=== PATIENT | male | born 1960 | race Caucasian/White ===

== ENCOUNTER 2021-01-05 03:49 | Emergency (ER) | payer MEDICARE, MEDICAID, SELFPAY ==
[2021-01-05] VITALS (8 sets, daily range): BP systolic 134–141; BP diastolic 65–86; PULSE 71–107; RESP 18; TEMP 36.8–37.1; O2SAT 92–97; BMI 48.5
--- NOTE | 2021-01-05 03:50 | HMH.EDGENADL ---
ED Disposition Clinical Impression: Mood disorder, Substance abuse Alcohol intoxication Qualifiers: Complication of substance-induced condition: uncomplicated Qualified Code(s): F10.920 - Alcohol use, unspecified with intoxication, uncomplicated Disposition: Home, Self-Care Condition on Discharge: Fair Instructions: DI for Depression -- Adult, DI for Alcohol Use Disorder, DI for Substance Use Disorder Additional Instructions: Referrals for alcohol rehabilitation given. Follow-up with primary care provider. Referrals: PCP,No [Primary Care Provider] - - Critical Care Critical Care Time: No Attestation: On , the high probability of a clinically significant, sudden or life threatening deterioration of the following system(s) required my full and direct attention, intervention and personal management. The time I documented below is in addition to time spent performing reported procedures but includes the following listed in this critical care notation. Medical Decision Making - Venkat Inquiry Pt receiving controlled substance: No Vital Signs: 01/05/21 03:35 01/05/21 05:44 01/05/21 05:45 Temperature 98.7 F Temperature Source Oral Pulse Rate 102 H 107 H Pulse Rate [Left Radial] 105 H Respiratory Rate 18 Blood Pressure Blood Pressure [Right Arm] 141/82 H Blood Pressure Mean Blood Pressure Mean [Right Arm] 101 Blood Pressure Source [Right Arm] Automatic Cuff Blood Pressure Position [Right Arm] Supine 02 Sat by Pulse Oximetry 96 92 L 93 L Oxygen Delivery Method Room Air 01/05/21 06:00 01/05/21 06:15 01/05/21 06:30 Temperature Temperature Source Pulse Rate 99 H 96 H 93 H Pulse Rate [Left Radial] Respiratory Rate Blood Pressure 141/86 H 136/80 Blood Pressure [Right Arm] Blood Pressure Mean 101 98 Blood Pressure Mean [Right Arm] Blood Pressure Source [Right Arm] Blood Pressure Position [Right Arm] 02 Sat by Pulse Oximetry 95 94 L 96 Oxygen Delivery Method 01/05/21 06:45 Temperature Temperature Source Pulse Rate 96 H Pulse Rate [Left Radial] Respiratory Rate Blood Pressure Blood Pressure [Right Arm] Blood Pressure Mean Blood Pressure Mean [Right Arm] Blood Pressure Source [Right Arm] Blood Pressure Position [Right Arm] 02 Sat by Pulse Oximetry 94 L Oxygen Delivery Method - Lab Data Lab Results 01/05/21 03:45: PT 11.7, INR 0.99, APTT 21.2 L 01/05/21 03:45: Sodium 141, Potassium 5.0, Chloride 107, Carbon Dioxide 22, Anion Gap 17.0 H, BUN 8 L, Creatinine 0.70, Estimated Creat Clear 36, Estimated GFR 115, Est GFR ( Amer) 140, Glucose 95, Calcium 9.1, Magnesium 1.9, Total Bilirubin 0.8, AST 90 H, ALT 49, Alkaline Phosphatase 359 H, Total Protein 8.0, Albumin 4.2, Globulin 3.8 H, Albumin/Globulin Ratio 1.1 01/05/21 03:45: Plasma/Serum Alcohol 248 H 01/05/21 04:13: WBC 6.6, RBC 3.96 L, Hgb 12.4 L, Hct 41.0 L, MCV 103.4 H, MCH 31.4 H, MCHC 30.3 L, RDW 17.9 H, Plt Count 686 H, MPV 8.6, Neut % (Auto) 40.1, Lymph % (Auto) 48.9, Kay % (Auto) 7.6, Eos % (Auto) 1.8, Baso % (Auto) 1.6, Neut # (Auto) 2.7, Lymph # (Auto) 3.2, Kay # (Auto) 0.5, Eos # (Auto) 0.1, Baso # (Auto) 0.1 01/05/21 05:07: Urine Opiates Screen Negative, Urine Methadone Screen Negative, Ur Barbituates Screen Negative, Ur Phencyclidine Scrn Negative, Ur Amphetamines Screen Negative, U Benzodiazepines Scrn Positive H, Urine Cocaine Screen Negative, U Marijuana (THC) Screen Negative Result diagrams: 01/05/21 04:13 01/05/21 03:45 Orders (Tests/Meds): ED MEDICATIONS Generic Name Dose Route Start Last Admin Trade Name Freq PRN Reason Stop Dose Admin Multivitamins 10 ml/ Thiamine 1,015 mls @ 150 mls/hr 01/05/21 04:00 01/05/21 04:04 HCl 100 mg/ Magnesium Sulfate IV 01/05/21 10:45 150 mls/hr 2 gm/ Lactated Ringer's .[id number] CAITLIN Administration Discontinued Medications Generic Name Dose Route Start Last Admin Trade Name Freq PRN Reason Stop Dose Admin
[2021-01-05 04:07] LABS: Chloride 107 mmol/L (98-107)
[2021-01-05 04:08] LABS: Sodium 141 mmol/L (136-145)
[2021-01-05 04:10] LABS: Alanine Aminotransferase 49 U/L (12-78); Aspartate Amino Transferase 90 U/L (17-59); Blood Urea Nitrogen 8 mg/dl (9-20); Creatinine Clearance Estimated 36 mL/min (50-200); Estimated Glomerular Filt Rate 115 ml/min (>60); GFR (African American) 140 ML/MIN (>60)
[2021-01-05 04:11] LABS: Albumin Level 4.2 g/dl (3.5-5.0); Albumin/Globulin Ratio 1.1 (1.1-1.8); Alkaline Phosphatase 359 U/L (38-126); Bilirubin,Total 0.8 mg/dl (0.2-1.3); Calcium 9.1 mg/dl (8.4-10.2); Carbon Dioxide 22 mmol/L (22.0-30.0); Ethyl Alcohol 248 mg/dl (0-10); Globulin 3.8 g/dL (1.3-3.2); Glucose 95 mg/dl (74-100); Magnesium 1.9 mg/dl (1.6-2.3)
[2021-01-05 04:19] LABS: Basophils # 0.1 K/mm3 (0-0.2); Basophils % 1.6 % (0.1-2.0); Eosinophils # 0.1 K/mm3 (0.0-0.4); Eosinophils % 1.8 % (0.1-12.0); Hemoglobin 12.4 g/dL (14.1-18.0); Lymphocytes # 3.2 K/mm3 (0.7-4.5); Lymphocytes % 48.9 % (10-50); Mean Corpuscular HGB Conc 30.3 g/dL (31.8-35.4); Mean Corpuscular Hemoglobin 31.4 pg (27.0-31.2); Mean Corpuscular Volume 103.4 fl (80-94); Mean Platelet Volume 8.6 fl (7.4-10.4); Monocytes # 0.5 K/mm3 (0.1-1.0); Monocytes % 7.6 % (1.7-9.3); Neutrophils # 2.7 K/mm3 (1.8-7.8); Neutrophils % 40.1 % (37.0-80.0); Platelet Count 686 K/mm3 (142-424); Red Blood Count 3.96 M/mm3 (4.60-6.20); Red Cell Distribution Width 17.9 % (11.5-17.5); White Blood Count 6.6 K/mm3 (4.8-10.8)
[2021-01-05 04:25] LABS: INR 0.99 (0.9-1.1); Prothrombin Time 11.7 seconds (10.1-12.5)
[2021-01-05 04:42] LABS: Activated Partial Thrombo Time 21.2 seconds (22.8-30.6)
[2021-01-05 05:23] LABS: Amphetamine/Metha Screen,Urine Negative ng/ml (<1000)
[2021-01-05 05:24] LABS: Barbiturates Screen,Urine Negative ng/ml (<200); Benzodiazepines Screen,Urine Positive ng/ml (<200)
[2021-01-05 05:25] LABS: Cannabinoid Screen,Urine Negative ng/ml (<50)
[2021-01-05 05:26] LABS: Cocaine Screen,Urine Negative ng/ml (<300); Methadone Screen,Urine Negative ng/ml (<300)
[2021-01-05 05:27] LABS: Opiate Screen,Urine Negative ng/ml (<300)
[2021-01-05 05:28] LABS: Phencyclidine Screen,Urine Negative ng/ml (<25)
--- NOTE | 2021-01-05 08:32 | PC.NURSE ---
Damaris Estevez, Case Management has secured pt a ride with [employer]. Bus will be here in approx 15 mins.
--- NOTE | 2021-01-05 10:21 | SW/DCPLANNER ---
I have arranged [facility] [employer] for this patient. I also provided patient with a list of Alcohol inpatient/outpatient resources. Patient had no further questions at this time.
== END 2021-01-05 08:46 | disposition home or self-care (01) ==
PROVIDERS: Emergency Provider Emergency Medicine
DX: F10.920 Alcohol use, unspecified with intoxication, uncomplicated (principal); F39 Unspecified mood [affective] disorder; Z95.0 Presence of cardiac pacemaker; I73.9 Peripheral vascular disease, unspecified; Z89.512 Acquired absence of left leg below knee; Z89.511 Acquired absence of right leg below knee; F17.210 Nicotine dependence, cigarettes, uncomplicated; Z51.81 Encounter for therapeutic drug level monitoring
CPT/HCPCS: 80053; 80305; 83735; 85025; 85610; 85730; 99281

== ENCOUNTER 2021-05-01 18:33 | Emergency (ER) | payer MEDICARE, MEDICAID, SELFPAY ==
[2021-05-01 18:34] VITALS: BP 150/81; PULSE 96; RESP 16; TEMP 37.7; O2SAT 96; BMI 38.0
--- NOTE | 2021-05-01 18:49 | HMH.EDGENADL ---
ED Disposition Clinical Impression: Pain, lower extremity Qualifiers: Laterality: right Qualified Code(s): M79.604 - Pain in right leg Chronic pain Qualifiers: Chronic pain type: other chronic postprocedural pain Qualified Code(s): G89.28 - Other chronic postprocedural pain Disposition: Home, Self-Care Condition on Discharge: Good Referrals: Provider,Referral, [Referring] - - Critical Care Critical Care Time: No Attestation: On 05/01/21, the high probability of a clinically significant, sudden or life threatening deterioration of the following system(s) required my full and direct attention, intervention and personal management. The time I documented below is in addition to time spent performing reported procedures but includes the following listed in this critical care notation. Medical Decision Making - Medical Records Medical records reviewed: Yes: I reviewed the patient's medical records. - Venkat Inquiry Pt receiving controlled substance: Yes (Patient is on methadone for chronic pain.) Venkat was queried for this patient: No (Patient will not be receiving controlled substances during this visit) Risks and benefits of using a controlled substance: were discussed with pt by me Vital Signs: 05/01/21 18:34 Temperature 99.8 F H Temperature Source Oral Pulse Rate [Radial] 96 H Respiratory Rate 16 Blood Pressure [Right Arm] 150/81 H Blood Pressure Mean [Right Arm] 104 Blood Pressure Position [Right Arm] Sitting 02 Sat by Pulse Oximetry 96 Oxygen Delivery Method Room Air Orders (Tests/Meds): ED MEDICATIONS Discontinued Medications Generic Name Dose Route Start Last Admin Trade Name Freq PRN Reason Stop Dose Admin Ketorolac Tromethamine 60 mg 05/01/21 18:49 05/01/21 18:52 Ketorolac 60mg/2ml Vial IM 05/01/21 18:50 60 mg ONCE ONE Administration Medical Decision Narrative: Patient presents to the emergency department complaining of right-sided thigh pain. This is a chronic issue. On physical examination there is no evidence for life-threatening or dangerous causes for the patient's pain. The patient has chronic phantom pain. He is on methadone for this. There is no sign of infection or ischemia on physical examination today. Given the fact the patient is already on methadone for this chronic pain, he will not be given any narcotic pain medication during this visit. He has been given Toradol and will be discharged in stable condition. General Adult HPI - General Chief complaint: PAIN Stated complaint: thigh pain Time Seen by Provider: 05/01/21 18:49 Mode of Arrival: EMS Source of Information: Patient Limitations: No Limitations Description of Symptoms (Recalled from ER Triage Doc. by RN): TO ED PER SQUAD WITH C/O RT THIGH PAIN AND SWELLING PT WITH HX OF PAULIE AKA DUE TO PVD. PT STATES HE ALWAYS HAS PAIN BUT THIS IS DIFFERENT - History of Present Illness HPI narrative: The patient presents to the emergency department via ambulance complaining of worsening phantom pain. He has bilateral [id number] amputations. He denies fevers. Denies bleeding. He denies recent injury. Radiation: non-radiation - Related Data Home Medications Medication Instructions Recorded Confirmed Aspirin [Aspirin 81mg EC Tab] 1 tab PO DIRECTED 11/20/18 01/17/19 Atorvastatin Calcium [Atorvastatin 10 mg PO HS 11/20/18 01/17/19 10mg Tab] Metoprolol Tartrate [Lopressor 25 mg PO BID 11/20/18 01/17/19 25mg tablet] Oxycodone HCl [OxyIR 5mg tablet] 1 tab * DIRECTED 11/20/18 01/17/19 Amlodipine Besylate [Amlodipine 5 mg PO DAILY 01/17/19 01/17/19 5mg tab] Calcium Carbonate/Vitamin D3 1 each PO DAILY 01/17/19 01/17/19 [Calcium 600-Vit D3 400 Tablet] Ergocalciferol (Vitamin D2) 50,000 unit PO WEEKLY 01/17/19 01/17/19 [Vitamin D2] Ezetimibe 10 mg PO DAILY 01/17/19 01/17/19 Levocetirizine Dihydrochloride 5 mg PO DAILY 01/17/19 01/17/19 Montelukast Sodium [Montelukast 10
[2021-05-01 19:42] VITALS: BP 111/68; PULSE 91; RESP 16; TEMP 37.1; O2SAT 96
== END 2021-05-01 19:44 | disposition home or self-care (01) ==
PROVIDERS: Emergency Provider Emergency Medicine; PCP Family Medicine
DX: M79.604 Pain in right leg (principal); G89.28 Other chronic postprocedural pain; Z89.612 Acquired absence of left leg above knee; Z89.611 Acquired absence of right leg above knee; I73.9 Peripheral vascular disease, unspecified; F17.210 Nicotine dependence, cigarettes, uncomplicated
CPT/HCPCS: 99281

== ENCOUNTER 2021-10-26 16:52 | Emergency (ER) | payer MEDICARE, MEDICAID, SELFPAY ==
[2021-10-26 16:56] VITALS: BP 169/90; PULSE 84; RESP 18; TEMP 37.1; O2SAT 98; BMI 42.7
[2021-10-26 17:00] VITALS: BP 169/90; PULSE 83; O2SAT 98
--- NOTE | 2021-10-26 17:26 | HMH.EDGENADL ---
ED Disposition Clinical Impression: Jaisonkiness Disposition: Home, Self-Care Condition on Discharge: Good Additional Instructions: Ativan as needed. Follow-up with your primary care doctor within the next 2 days. Additional instructions for CONTROLLED SUBSTANCES: You have been prescribed a medication that is a controlled substance. Controlled substances include pain medications known as opiates and sedative nerve medications known as benzodiazepines. Tramadol, fioricet, and gabapentin are also controlled substances. Some common opiates include: Codeine (such as Tylenol #3) Hydrocodone (Vicodin, Lortab, Lorcet, Mccrory) Oxycodone (Percocet, Percodan, Oxycodone, Oxy IR) Some common benzodiazepines include: Diazepam (Valium) Lorazepam (Ativan) Alprazolam (Xanax) Clonazepam (Klonopin) Oxazepam (Serax) All of these controlled substances are highly addictive and frequently abused. Misuse can and frequently does lead to addiction as well as overdose and . Medication should be stored in a locked cabinet or other secure storage unit. Do not store the medication in a motor vehicle. Short term supplies, 3 days or less, are prescribed because of the highly addictive nature of the medication. Any of the controlled substance medication NOT taken should be disposed of properly and NOT SAVED. The recommended method of disposing of unused medications is: Place the medicines in a sealable plastic bag. If the medicine is a solid, crush it or add water to dissolve it. Add something undesirable (cat litter, coffee grounds, etc.) Dispose of sealed bag in household trash Do not flush or pour unused medicines down a sink or drain. Controlled substances should not be shared, given away or sold. Because of the addictive nature and frequent abuse, these medications are sometimes stolen. These medications should be kept in a safe place where they cannot be stolen. Do not keep them in your car or purse. Lost or stolen prescriptions for controlled substances WILL NOT BE REFILLED in this emergency department, regardless of whether a police report was filed. Prescriptions: LORazepam [Ativan 1mg tablet] 1 mg PO BIDP PRN #4 tab PRN Reason: Anxiety Transmission Status: Received by [facility] Referrals: Provider,Referral, [Referring] - - Critical Care Critical Care Time: No Attestation: On 10/26/21, the high probability of a clinically significant, sudden or life threatening deterioration of the following system(s) required my full and direct attention, intervention and personal management. The time I documented below is in addition to time spent performing reported procedures but includes the following listed in this critical care notation. Medical Decision Making - Venkat Inquiry Pt receiving controlled substance: Yes Venkat was queried for this patient: Yes Risks and benefits of using a controlled substance: were discussed with pt by me Vital Signs: 10/26/21 16:56 10/26/21 17:00 10/26/21 17:30 Temperature 98.7 F Temperature Source Oral Pulse Rate 83 79 Pulse Rate [Right Radial] 84 Respiratory Rate 18 Blood Pressure 169/90 H 188/106 H Blood Pressure [Right Arm] 169/90 H Blood Pressure Mean 117 133 Blood Pressure Mean [Right Arm] 116 Blood Pressure Source [Right Arm] Automatic Cuff Blood Pressure Position [Right Arm] Sitting 02 Sat by Pulse Oximetry 98 98 96 Oxygen Delivery Method Room Air 10/26/21 18:25 10/26/21 19:31 Temperature Temperature Source Pulse Rate 82 82 Pulse Rate [Right Radial] Respiratory Rate 16 Blood Pressure 199/123 H 151/93 H Blood Pressure [Right Arm] Blood Pressure Mean Blood Pressure Mean [Right Arm] Blood Pressure Source [Right Arm] Blood Pressure Position [Right Arm] 02 Sat by Pulse Oximetry 97 98 Oxygen Delivery Method Room Air - Lab Data Lab Results 10/26/21 17:46: WBC 14.6 H, RBC 4.45 L, Hgb 13.9 L, Hc
[2021-10-26 17:30] VITALS: BP 188/106; PULSE 79; O2SAT 96
[2021-10-26 18:01] LABS: Basophils # 0.2 K/mm3 (0-0.2); Basophils % 1.1 % (0.1-2.0); Eosinophils # 0.6 K/mm3 (0.0-0.4); Eosinophils % 3.9 % (0.1-12.0); Hematocrit 45.3 % (42.0-52.0); Hemoglobin 13.9 g/dL (14.1-18.0); Lymphocytes # 3.5 K/mm3 (0.7-4.5); Lymphocytes % 23.8 % (10-50); Mean Corpuscular HGB Conc 30.6 g/dL (31.8-35.4); Mean Corpuscular Hemoglobin 31.2 pg (27.0-31.2); Mean Corpuscular Volume 101.9 fl (80-94); Mean Platelet Volume 8.6 fl (7.4-10.4); Monocytes % 6.8 % (1.7-9.3); Neutrophils # 9.4 K/mm3 (1.8-7.8); Neutrophils % 64.5 % (37.0-80.0); Platelet Count 775 K/mm3 (142-424); Red Blood Count 4.45 M/mm3 (4.60-6.20); Red Cell Distribution Width 16.9 % (11.5-17.5); White Blood Count 14.6 K/mm3 (4.8-10.8)
[2021-10-26 18:03] LABS: Chloride 106 mmol/L (98-107); Potassium 3.7 mmoL/L (3.5-5.1); Sodium 138 mmol/L (136-145)
[2021-10-26 18:05] LABS: Blood Urea Nitrogen 8 mg/dl (9-20); Creatinine Clearance Estimated 36 mL/min (50-200); Estimated Glomerular Filt Rate 115 ml/min (>60); GFR (African American) 140 ML/MIN (>60)
[2021-10-26 18:06] LABS: Alanine Aminotransferase 16 U/L (12-78); Albumin Level 4.6 g/dl (3.5-5.0); Albumin/Globulin Ratio 1.4 (1.1-1.8); Alkaline Phosphatase 104 U/L (38-126); Anion Gap 11.7 mEq/L (5-15); Aspartate Amino Transferase 28 U/L (17-59); Bilirubin,Total 0.3 mg/dl (0.2-1.3); Calcium 9.6 mg/dl (8.4-10.2); Carbon Dioxide 24 mmol/L (22.0-30.0); Globulin 3.4 g/dL (1.3-3.2); Glucose 91 mg/dl (74-100)
[2021-10-26 18:25] VITALS: BP 199/123; PULSE 82; O2SAT 97
[2021-10-26 18:27] LABS: Troponin I < 0.01 ng/ml (0.00-0.034)
--- NOTE | 2021-10-26 18:34 | XR_ITS ---
PROCEDURE INFORMATION: Exam: XR Chest Exam date and time: 10/26/2021 6:34 PM Age: 60 years old Clinical indication: Other: Weakness; Additional info: Shakiness TECHNIQUE: Imaging protocol: XR of the chest. Views: 1 view. COMPARISON: CR XR CHEST PORTABLE 06/26/2019 6:22 AM FINDINGS: Tubes, catheters and devices: A pacemaker device is present, and its leads are in appropriate position. Airway: Patent Lungs: No acute interstitial or airspace disease. Pleural spaces: There is blunting of the left costophrenic angle. Right costophrenic angle is clear. No pneumothorax. Heart/Mediastinum: Unremarkable. No cardiomegaly. Bones/joints: No acute skeletal abnormality or aggressive osseous lesion. IMPRESSION: 1. Left costophrenic angle findings may be related to scarring/atelectasis versus a small left pleural effusion. 2. No other acute thoracic pathology is identified.
[2021-10-26 18:44] LABS: Microscopic, Urine URINE MICROSCOPIC (MICROSCOPIC)
[2021-10-26 18:46] LABS: Appearance,Urine CLEAR (Clear); Bilirubin,Urine Negative (Negative); Blood, Urine Negative (Negative); Color,Urine YELLOW (Yellow); Glucose,Urine (UA) Negative (Negative); Ketones,Urine Negative (Negative); Leukocyte Esterase,Urine Negative (Negative); Nitrate,Urine Negative (Negative); Protein,Urine Negative (Negative); Urobilinogen,Urine 0.2 EU/dl (0.2)
[2021-10-26 18:56] LABS: Squamous Epithelial Cell,Urine Occasional #/hpf (0-5)
[2021-10-26 18:57] LABS: Amphetamine/Metha Screen,Urine Negative ng/ml (<1000); Barbiturates Screen,Urine Negative ng/ml (<200)
[2021-10-26 18:58] LABS: Benzodiazepines Screen,Urine Positive ng/ml (<200); Cocaine Screen,Urine Negative ng/ml (<300)
[2021-10-26 18:59] LABS: Methadone Screen,Urine Negative ng/ml (<300)
[2021-10-26 19:00] LABS: Cannabinoid Screen,Urine Negative ng/ml (<50); Opiate Screen,Urine Negative ng/ml (<300)
[2021-10-26 19:01] LABS: Phencyclidine Screen,Urine Negative ng/ml (<25)
[2021-10-26 19:31] VITALS: BP 151/93; PULSE 82; RESP 16; O2SAT 98
--- NOTE | 2021-10-26 19:51 | ECG_ITS ---
APPROVED REPORT Exam: Resting ECG HR:69 bpm ECG Measurements Heart Rate 69 AXES IL 167 P 72 QRSd 88 QRS 57 QT 384 T 49 QTc 404 Conclusion SINUS RHYTHM NORMAL ECG UNCONFIRMED REPORT Electronically signed by : Gonzalo Grey MD 10/27/2021 19:30:52
[2021-10-26 20:06] VITALS: BP 150/90; PULSE 82; RESP 20; TEMP 37.1; O2SAT 97
== END 2021-10-26 20:08 | disposition home or self-care (01) ==
PROVIDERS: Emergency Provider Emergency Medicine; PCP Family Medicine
DX: R42 Dizziness and giddiness (principal); R25.1 Tremor, unspecified; Z89.612 Acquired absence of left leg above knee; Z89.611 Acquired absence of right leg above knee; Z95.0 Presence of cardiac pacemaker; F17.210 Nicotine dependence, cigarettes, uncomplicated; Z79.899 Other long term (current) drug therapy
CPT/HCPCS: 71045; 80053; 80305; 81001; 84484; 85025; 93005; 99284

== ENCOUNTER → 2023-05-17 19:10 | Outpatient (CLI) | payer MEDICARE, MEDICAID, SELFPAY ==
[2023-05-18 11:26] LABS: Amphetamine/Metha Screen,Urine Negative ng/ml (<1000)
[2023-05-18 11:27] LABS: Barbiturates Screen,Urine Negative ng/ml (<200)
[2023-05-18 11:29] LABS: Cocaine Screen,Urine Negative ng/ml (<300); Methadone Screen,Urine Negative ng/ml (<300)
[2023-05-18 11:30] LABS: Opiate Screen,Urine Positive ng/ml (<300)
[2023-05-18 11:31] LABS: Phencyclidine Screen,Urine Negative ng/ml (<25)
[2023-05-18 11:34] LABS: Benzodiazepines Screen,Urine Positive ng/ml (<200); Cannabinoid Screen,Urine Negative ng/ml (<50)
== END ==
PROVIDERS: PCP Family Medicine; Visit Provider Family Medicine
DX: Z79.899 Other long term (current) drug therapy (principal)
CPT/HCPCS: 80305

== ENCOUNTER 2023-05-25 15:46 | Emergency (ER) | payer MEDICARE, MEDICAID, SELFPAY ==
[2023-05-25] VITALS (11 sets, daily range): BP systolic 124–138; BP diastolic 7–72; PULSE 66–101; RESP 16–22; TEMP 37; O2SAT 92–96; BMI 21.5
--- NOTE | 2023-05-25 15:52 | HMH.EDGENADL ---
Discharge Plan Disposition Patient Disposition: Home, Self-Care Prescriptions Prescriptions: No Action loperamide 2 mg capsule 2 mg PO QID Patient Comments: TAKE 1 CAPSULE BY MOUTH 4 TIMES DAILY NEEDED FOR DIARRHEA. tamsulosin 0.4 mg capsule PO hydroxyzine pamoate 25 mg capsule 25 mg PO TID amlodipine 10 mg tablet 10 mg PO DAILY telmisartan 80 mg tablet 80 mg PO Patient Comments: TAKE 1 TABLET BY MOUTH ONCE DAILY. omeprazole 40 mg capsule,delayed release(DR/EC) 40 mg PO Patient Comments: TAKE 1 CAPSULE BY MOUTH ONCE DAILY. lidocaine [Aspercreme (lidocaine)] 4 % adhesive patch,medicated topical fluticasone propion-salmeterol 250-50 mcg/dose blister with device inhalation Patient Comments: INHALE 1 PUFF DIRECTED TWICE A DAY atorvastatin 80 mg tablet 80 mg PO Patient Comments: TAKE 1 TABLET BY MOUTH DAILY. pregabalin 200 mg capsule 200 mg PO TID Patient Comments: TAKE 1 CAPSULE BY MOUTH 3 TIMES DAILY. clonidine HCl 0.1 mg tablet 0.1 mg PO BID oxycodone 5 mg tablet 5 mg PO Q8H PRN (Reason: pain) Qty: 45 0RF Rx Instructions: dose change rivaroxaban 20 mg tablet 20 mg PO DAILY Qty: 30 0RF aspirin 81 MG tablet,delayed release (DR/EC) 1 tab PO DIRECTED Patient Comments: TAKE 1 TABLET BY MOUTH ONCE DAILY ezetimibe 10 MG tablet 10 mg PO DAILY levocetirizine 5 MG tablet 5 mg PO DAILY Referrals Follow up/Referrals: Byron Ott MD [Primary Care Provider] - See instructions Activity Restrictions/Add. Instructions Additional Instructions/Restrictions: Call your family doctor to establish care for this visit to the emergency department and schedule follow-up within 48 hours to ensure improvement. If you have any worsening of your condition or any other concerning signs or symptoms, return to the emergency department or your primary care doctor for further evaluation. Take Tylenol 1000 mg every 6 hours (4 times daily) and ibuprofen 400 mg every 6 hours (4 times daily) as needed with food and water to prevent GI upset and kidney damage. Clinical Impressions Clinical Impression: Colitis Discharge ED Provider: Dany Epperson General Adult HPI General Chief complaint: PAIN Stated complaint: ABD & bilat flank pain, fever yesterday Time Seen by Provider: 09/01/23 15:48 History of Present Illness HPI narrative: This is a 62-year-old male with history of peripheral arterial disease secondary to smoking status post bilateral lower extremity AKA's, hypertension, hyperlipidemia, currently on Xarelto presenting with abdominal pain. Patient states that he has had difficulty urinating the last couple of days secondary to pain. Has had intermittent low-volume urinary dribbling, but has not lost function of bowel or bladder. States that he feels like he can constantly urinate, but does not always when he wants to. [place] febrile 1 day prior to arrival, took his temperature it was 100.1 ?F. Associated suprapubic abdominal pain intermittently radiating to his right flank. Denies dysuria or hematuria. Has not had vomiting, diarrhea constipation, trauma, and has been taking all his medications, as prescribed. Still smoking 2 packs/day. Related Data Home Medications Medication Instructions Recorded Confirmed aspirin 81 mg tablet,delayed 1 tab PO DIRECTED antiplatelet 11/20/18 05/23/23 release ezetimibe 10 mg tablet 10 mg PO DAILY CAD 01/17/19 05/23/23 levocetirizine 5 mg tablet 5 mg PO DAILY Allergy symptoms 01/17/19 05/23/23 amlodipine 10 mg tablet 10 mg PO DAILY 04/18/23 05/23/23 atorvastatin 80 mg tablet 80 mg PO 04/18/23 05/23/23 clonidine HCl 0.1 mg tablet 0.1 mg PO BID 04/18/23 05/23/23 fluticasone 250 mcg-salmeterol 50 inhalation 04/18/23 05/23/23 mcg/dose blistr powdr for inhalation hydroxyzine pamoate 25 mg capsule 25 mg PO TID 04/18/2304/26
[2023-05-25 16:04] LABS: Microscopic, Urine URINE MICROSCOPIC (MICROSCOPIC)
[2023-05-25 16:14] LABS: Basophils # 0.1 K/mm3 (0-0.2); Basophils % 0.3 % (0.1-2.0); Eosinophils # 0.6 K/mm3 (0.0-0.4); Eosinophils % 3.7 % (0.1-12.0); Hematocrit 31.1 % (42.0-52.0); Hemoglobin 9.4 g/dL (14.1-18.0); Lymphocytes # 4.1 K/mm3 (0.7-4.5); Lymphocytes % 25.3 % (10-50); Mean Corpuscular HGB Conc 30.4 g/dL (31.8-35.4); Mean Corpuscular Hemoglobin 23.6 pg (27.0-31.2); Mean Corpuscular Volume 77.8 fl (80-94); Monocytes # 1.1 K/mm3 (0.1-1.0); Monocytes % 6.6 % (1.7-9.3); Neutrophils # 10.3 K/mm3 (1.8-7.8); Neutrophils % 64.1 % (37.0-80.0); Platelet Count 653 K/mm3 (142-424); Red Blood Count 3.99 M/mm3 (4.60-6.20); Red Cell Distribution Width 22.5 % (11.5-17.5); White Blood Count 16.1 K/mm3 (4.8-10.8)
--- NOTE | 2023-05-25 16:15 | PC.NURSE ---
Notified RT of VBG order
[2023-05-25 16:28] LABS: MANUAL DIFFERENTIAL MANUAL DIFFERENTIAL (MANUAL DIFF)
[2023-05-25 16:32] LABS: Appearance,Urine Clear (Clear); Bilirubin,Urine Negative (Negative); Blood, Urine Negative (Negative); Color,Urine Yellow (Yellow); Glucose,Urine (UA) Negative (Negative); Ketones,Urine Negative (Negative); Nitrate,Urine Negative (Negative); Protein,Urine Negative (Negative); Urobilinogen,Urine 0.2 EU/dl (0.2)
[2023-05-25 16:33] LABS: Leukocyte Esterase,Urine Negative (Negative); Squamous Epithelial Cell,Urine Occasional #/hpf (0-5)
[2023-05-25 16:34] LABS: VBG Base Excess -0.4 mmol/L (-2.4-2.3); VBG HCO3 23.6 mmol/L (23-30); VBG Oxygen Saturation 91.6 % (50-70); VBG PCO2 35.2 mmol/L (35-51); VBG PH 7.45 mmol/L (7.31-7.41); VBG PO2 57.5 mmol/L (28-40); VBG Total CO2 24.7 mmol/L (23-27)
[2023-05-25 16:49] LABS: Alanine Aminotransferase 19 U/L (12-78); Albumin Level 3.7 g/dl (3.5-5.0); Alkaline Phosphatase 106 U/L (38-126); Anion Gap 14.3 mEq/L (5-15); Aspartate Amino Transferase 46 U/L (17-59); Bilirubin,Total 0.4 mg/dl (0.2-1.3); Blood Urea Nitrogen 5 mg/dl (9-20); Calcium 8.9 mg/dl (8.4-10.2); Carbon Dioxide 27 mmol/L (22.0-30.0); Chloride 102 mmol/L (98-107); Creatinine Clearance Estimated 75 mL/min (50-200); Estimated Glomerular Filt Rate 137 ml/min (>60); GFR (African American) 166 ML/MIN (>60); Globulin 3.8 g/dL (1.3-3.2); Glucose 82 mg/dl (74-100); Lipase 27 U/L (23-300); Potassium 4.3 mmoL/L (3.5-5.1); Sodium 139 mmol/L (136-145); Total Protein,Serum 7.5 g/dl (6.3-8.2)
[2023-05-25 17:03] LABS: Troponin I < 0.01 ng/ml (0.00-0.034)
[2023-05-25 17:04] LABS: Anisocytosis 2+; Lymphocytes % 27 % (10-50); Monocytes % 3 % (2-9); Neutrophils % 70 % (42-76); Platelet Estimate Slight Increase; Total Cells Counted 100
[2023-05-25 17:05] LABS: Hypochromasia 1+; Microcytosis 2+
--- NOTE | 2023-05-25 17:16 | CT_ITS ---
PROCEDURE INFORMATION: Exam: CTA Abdomen and Pelvis With Contrast Exam date and time: 05/25/2023 5:34 PM Age: 62 years old Clinical indication: Abdominal pain; Generalized; Additional info: Diffuse abd pain, pain out of proportion TECHNIQUE: Imaging protocol: Computed tomographic angiography of the abdomen and pelvis with contrast. Exam focused on the arteries. 3D rendering (Not supervised by radiologist): MIP and/or 3D reconstructed images were created by the technologist. Radiation optimization: All CT scans at this facility use at least one of these dose optimization techniques: automated exposure control; mA and/or kV adjustment per patient size (includes targeted exams where dose is matched to clinical indication); or iterative reconstruction. Contrast material: ISOVUE; Contrast volume: 100 ml; Contrast route: INTRAVENOUS (IV); REPORTING DATA: Count of CT and Cardiac NM exams in prior 12 months: This patient has received 0 known CTs and 0 known cardiac nuclear medicine studies in the 12 months prior to the current study. COMPARISON: CT ABDOMEN PELVIS W CON 06/26/2019 6:19 AM FINDINGS: Lungs: Right middle lobe ground-glass opacities. Mild subsegmental and dependent atelectasis. Left lower lobe calcified granuloma. Heart: Partially visualized cardiac pacing leads. Mediastinal space: Mild circumferential wall thickening of the distal esophagus. Aorta: Extensive atherosclerosis. 1.2 cm ulcer like projection at the left anterolateral aspect of the descending thoracic aorta. Complete occlusion of the [place] infrarenal abdominal aorta. Chronic occlusion of the [place] iliac arteries and of bilateral external iliac artery stents. Postsurgical changes aortobifemoral stent graft with chronic occlusion. Postsurgical changes fem-fem bypass with chronic occlusion. Celiac trunk and mesenteric arteries: Mild stenosis of the proximal celiac trunk and SMA. Renal arteries: Mild right and severe left stenosis. Right iliac arteries: No occlusion or significant stenosis. Left iliac arteries: No occlusion or significant stenosis. Liver: Hepatomegaly. Gallbladder and bile ducts: Unremarkable. No calcified stones. No ductal dilation. Pancreas: Few small pancreatic calcifications likely associated with chronic pancreatitis. Spleen: Postsurgical changes of splenectomy. Adrenal glands: Unremarkable. No mass. Kidneys and ureters: Bilateral renal cysts the largest of which measures 2.1 cm within the left kidney interpolar region. Left renal atrophy. No dilation of the urinary collecting system. Stomach and bowel: Mild wall thickening of the descending/sigmoid colon and rectum. Mild colonic diverticulosis. No pneumatosis intestinalis or portal venous gas. Appendix: No evidence of appendicitis. Intraperitoneal space: Unremarkable. No free air. No significant fluid collection. Lymph nodes: Unremarkable. No enlarged lymph nodes. Urinary bladder: Unremarkable. No mass. Reproductive: Mildly enlarged prostate. Bones/joints: Postsurgical changes of total left hip arthroplasty. No acute osseous findings. Degenerative changes of the spine. Soft tissues: Small fat containing periumbilical hernia. IMPRESSION: 1. Extensive atherosclerosis with occlusion of the [place] infrarenal abdominal aorta and iliac arteries. Chronic occlusion aortobifemoral stent graft, bilateral external iliac artery stents and fem-fem bypass. Severe atherosclerotic narrowing of the left renal artery. 2. Mild wall thickening of the descending/sigmoid colon and rectum compatible with proctocolitis. No evidence of bowel ischemia. 3. Diffuse distal esophageal wall thickening which may be seen with esophagitis or chronic reflux. 4. Right middle lobe ground-glass opacities l
--- NOTE | 2023-05-25 17:28 | PC.NURSE ---
Pt gone to RAD via stretcher
--- NOTE | 2023-05-25 17:33 | PC.NURSE ---
PT IN CT
--- NOTE | 2023-05-25 17:40 | PC.NURSE ---
Pt returned from RAD
--- NOTE | 2023-05-25 18:51 | PC.NURSE ---
Pt resting in bed. No needs voiced at this time.
--- NOTE | 2023-05-25 19:49 | PC.NURSE ---
Placed two mepitel dressing on each side of deana area for existing wounds. Pt stated that he is going to try and call brother to come and get him.
--- NOTE | 2023-05-25 19:54 | PC.NURSE ---
PT has two stage two wounds on both side close to rectum. He has been getting wound care dressing changes at home from a nurse.
== END 2023-05-25 20:15 | disposition home or self-care (01) ==
PROVIDERS: Emergency Provider Emergency Medicine; PCP Family Medicine
DX: K52.9 Noninfective gastroenteritis and colitis, unspecified (principal); R10.30 Lower abdominal pain, unspecified; I73.9 Peripheral vascular disease, unspecified; I10 Essential (primary) hypertension; E78.5 Hyperlipidemia, unspecified; Z89.611 Acquired absence of right leg above knee; Z89.612 Acquired absence of left leg above knee; Z79.01 Long term (current) use of anticoagulants; F17.210 Nicotine dependence, cigarettes, uncomplicated
CPT/HCPCS: 74174; 80053; 81001; 82803; 83605; 83690; 84484; 85007; 85025; 96361; 96374; 96375; 99285; J0131; Q9967

== ENCOUNTER 2023-06-04 04:48 | Emergency (ER) | payer MEDICARE, MEDICAID, SELFPAY ==
[2023-06-04 04:48] VITALS: BP 183/92; PULSE 118; RESP 19; TEMP 36.8; O2SAT 98; BMI 51.8
--- NOTE | 2023-06-04 05:06 | PC.NURSE ---
Bilateral gluteal folds assessed with attending at bedside. Cleansed and dressed with mepilex. Patient tolerated well
--- NOTE | 2023-06-04 05:24 | HMH.EDGENADL ---
Discharge Plan Disposition Patient Disposition: Home, Self-Care Condition: Good Prescriptions Prescriptions: No Action clonidine HCl 0.1 mg tablet 0.1 mg PO BIDP PRN (Reason: High blood) Patient Comments: TAKE 1 TABLET BY MOUTH TWICE DAILY NEEDED FOR HIGH BLOOD PRESSURE. (TAKE NEEDED FOR BP >160-100) lidocaine [Salonpas (lidocaine)] 4 % adhesive patch,medicated 1 patch TOPICAL DAILYP PRN (Reason: Chronic pain) loperamide 2 mg capsule 2 mg PO QIDP PRN (Reason: Diarrhea) Patient Comments: TAKE 1 CAPSULE BY MOUTH 4 TIMES DAILY NEEDED FOR DIARRHEA. omeprazole 40 mg capsule,delayed release(DR/EC) 40 mg PO DAILY Patient Comments: TAKE 1 CAPSULE BY MOUTH ONCE DAILY. amitriptyline 25 mg tablet 25 mg PO HS Patient Comments: TAKE 1 TABLET BY MOUTH NIGHTLY. tamsulosin 0.4 mg capsule 0.8 mg PO HS Patient Comments: TAKE 2 CAPSULES BY MOUTH NIGHTLY. amlodipine 10 mg tablet 10 mg PO DAILY Patient Comments: TAKE ONE TABLET BY MOUTH ONCE DAILY telmisartan 80 mg tablet 80 mg PO DAILY Patient Comments: TAKE 1 TABLET BY MOUTH ONCE DAILY. aspirin 81 mg tablet,chewable 81 mg PO DAILY oxycodone 5 mg tablet 5 mg PO TIDP PRN (Reason: Chronic pain) Patient Comments: TAKE 1 TABLET BY MOUTH EVERY 8 HOURS NEEDED FOR PAIN hydroxyzine pamoate 25 mg capsule 25 mg PO TIDP PRN (Reason: Anxiety) Patient Comments: TAKE 1 CAPSULE BY MOUTH 3 TIMES DAILY NEEDED. pregabalin 200 mg capsule 200 mg PO TID Patient Comments: TAKE 1 CAPSULE BY MOUTH 3 TIMES DAILY. levocetirizine 5 mg tablet 5 mg PO DAILY Patient Comments: TAKE 1 TABLET BY MOUTH EVERY EVENING. Xarelto 20 mg tablet 20 mg PO DAILY Patient Comments: TAKE 1 TABLET BY MOUTH ONCE DAILY FOR BLOOD THINNER Referrals Follow up/Referrals: Byron Ott MD [Primary Care Provider] - See instructions Activity Restrictions/Add. Instructions Additional Instructions/Restrictions: Please follow-up with your primary care provider. Please return to the emergency department if you develop any new or worsening symptoms or become concerned for your health. Clinical Impressions Clinical Impression: Pain Discharge ED Provider: Guy Hampton Adult [facility] General Chief complaint: PAIN Stated complaint: phantom leg pain,abd pain Time Seen by Provider: 06/04/23 05:00 Mode of Arrival: EMS Source of Information: Patient Limitations: Physical Limitations Description of Symptoms (Recalled from ER Triage Doc. by RN): 62 M presents from home via EMS r/t chronic pain, chronic psychiatric issues, and overall not feeling well. Patient is a BAKA. Patient reports phantom pain to these legs. He reports a long history of chronic alcholism, but has been clean since November of this year. Patient denies being suicidall, but reports he just can't live with these issues anymore and ya'll can't help me. Patient adds that his new primary doctor won't prescribe him his pain medications anymore. History of Present Illness HPI narrative: 62-year-old male history of peripheral artery disease, chronic opiate use, chronic alcoholism, substance use disorders presents for pain. He reports that he has pain all over. He was previously prescribed opiate medications from multiple physicians over time. He got a letter yesterday stating that his most recent provider has dropped him and is no longer going to prescribe him opiates because his Piss test showed benzos that he was not prescribed. When asked specifically what was causing him pain or what medical concerns he had he reported that his wounds are painful. Patient has a history of bilateral AKA for peripheral artery disease and he has chronic decubitus ulcers. He has a wound care appointment this morning at 8 AM. He arrived by ambulance and did not bring his wheelchair. He reports no fever. Report
[2023-06-04 05:38] VITALS: BP 146/89; PULSE 98; RESP 19; TEMP 36.8; O2SAT 97
== END 2023-06-04 05:38 | disposition home or self-care (01) ==
PROVIDERS: Emergency Provider Emergency Medicine; PCP Family Medicine
DX: G54.6 Phantom limb syndrome with pain (principal); I73.9 Peripheral vascular disease, unspecified; F11.90 Opioid use, unspecified, uncomplicated; F17.210 Nicotine dependence, cigarettes, uncomplicated; Z89.611 Acquired absence of right leg above knee; Z89.612 Acquired absence of left leg above knee; L89.152 Pressure ulcer of sacral region, stage 2
CPT/HCPCS: 99282

== ENCOUNTER 2023-06-04 09:33 | Emergency (ER) | payer MEDICARE, MEDICAID, SELFPAY ==
[2023-06-04 09:34] VITALS: BP 136/94; PULSE 123; RESP 16; TEMP 36.9; O2SAT 98; BMI 48.8
--- NOTE | 2023-06-04 10:02 | HMH.EDGENADL ---
Discharge Plan Disposition Patient Disposition: Home, Self-Care Prescriptions Prescriptions: No Action clonidine HCl 0.1 mg tablet 0.1 mg PO BIDP PRN (Reason: High blood) Patient Comments: TAKE 1 TABLET BY MOUTH TWICE DAILY NEEDED FOR HIGH BLOOD PRESSURE. (TAKE NEEDED FOR BP >160-100) lidocaine [Salonpas (lidocaine)] 4 % adhesive patch,medicated 1 patch TOPICAL DAILYP PRN (Reason: Chronic pain) loperamide 2 mg capsule 2 mg PO QIDP PRN (Reason: Diarrhea) Patient Comments: TAKE 1 CAPSULE BY MOUTH 4 TIMES DAILY NEEDED FOR DIARRHEA. omeprazole 40 mg capsule,delayed release(DR/EC) 40 mg PO DAILY Patient Comments: TAKE 1 CAPSULE BY MOUTH ONCE DAILY. amitriptyline 25 mg tablet 25 mg PO HS Patient Comments: TAKE 1 TABLET BY MOUTH NIGHTLY. tamsulosin 0.4 mg capsule 0.8 mg PO HS Patient Comments: TAKE 2 CAPSULES BY MOUTH NIGHTLY. amlodipine 10 mg tablet 10 mg PO DAILY Patient Comments: TAKE ONE TABLET BY MOUTH ONCE DAILY telmisartan 80 mg tablet 80 mg PO DAILY Patient Comments: TAKE 1 TABLET BY MOUTH ONCE DAILY. aspirin 81 mg tablet,chewable 81 mg PO DAILY oxycodone 5 mg tablet 5 mg PO TIDP PRN (Reason: Chronic pain) Patient Comments: TAKE 1 TABLET BY MOUTH EVERY 8 HOURS NEEDED FOR PAIN hydroxyzine pamoate 25 mg capsule 25 mg PO TIDP PRN (Reason: Anxiety) Patient Comments: TAKE 1 CAPSULE BY MOUTH 3 TIMES DAILY NEEDED. pregabalin 200 mg capsule 200 mg PO TID Patient Comments: TAKE 1 CAPSULE BY MOUTH 3 TIMES DAILY. levocetirizine 5 mg tablet 5 mg PO DAILY Patient Comments: TAKE 1 TABLET BY MOUTH EVERY EVENING. Xarelto 20 mg tablet 20 mg PO DAILY Patient Comments: TAKE 1 TABLET BY MOUTH ONCE DAILY FOR BLOOD THINNER Referrals Follow up/Referrals: Byron Ott MD [Primary Care Provider] - See instructions Activity Restrictions/Add. Instructions Additional Instructions/Restrictions: At this time it was felt you are safe to be discharged home. If new or worsening symptoms please do not hesitate to return the emergency department. If symptoms persist please follow-up with your family doctor as you are able. Please follow-up with pain control clinic for which you were given a handout. It is imperative that you only take medications as they are prescribed to you. Clinical Impressions Clinical Impression: Chronic pain Discharge ED Provider: Beto Ordaz General Adult HPI General Chief complaint: PAIN Stated complaint: stomach pain Time Seen by Provider: 06/04/23 09:47 History of Present Illness HPI narrative: Patient is 62-year-old male with past medical history of chronic pain, vascular disease status post bilateral lower extremity amputations who presents emergency department for evaluation of diffuse pain. Patient was seen previously last night for evaluation of pain and declined any form of pain control that was not opiate per physician note. Patient has since had worsening back pain, bilateral lower extremity pain that is consistent with his chronic baseline pain. However per chart review patient was recently de-escalated on his opiates from 10 mg to 5 mg oxycodone Q8 for which he has been taking more than prescribed. Patient is using benzodiazepines such as Xanax that are not prescribed to him. No other acute complaints at this time. Related Data Home Medications Medication Instructions Recorded Confirmed amitriptyline 25 mg tablet 25 mg PO HS Psych 06/04/23 06/04/23 amlodipine 10 mg tablet 10 mg PO DAILY High Blood Pressure 06/04/23 06/04/23 aspirin 81 mg chewable tablet 81 mg PO DAILY Heart health 06/04/23 06/04/23 clonidine HCl 0.1 mg tablet 0.1 mg PO BIDP PRN High blood 06/04/23 06/04/23 hydroxyzine pamoate 25 mg capsule 25 mg PO TIDP PRN Anxiety 06/04/23 06/04/23 levocetirizine 5 mg tablet 5 mg PO DAILY Allergy Symptoms
--- NOTE | 2023-06-04 10:03 | PC.NURSE ---
attempted to call emergency contact; no answer
--- NOTE | 2023-06-04 10:24 | PC.NURSE ---
call made to brother, Chauncey Noa, he reports that he is coming to get the pt. Chauncey states that he will be here in approx 30 minutes.
--- NOTE | 2023-06-04 10:35 | PC.NURSE ---
spoke with Sara in [facility] about transportation for pt back to his home. Per Sejal in [facility], Due to pt not having his own wheelchair, [employer] is unable to take pt home. Per primary nurse Oralia pt brother has been contacted and will be here in 30 minutes. PT aware.
[2023-06-04 11:02] VITALS: BP 168/84; PULSE 92; O2SAT 97
--- NOTE | 2023-06-04 11:24 | PC.NURSE ---
call made to pts brother, Chauncey Noa, no answer.
[2023-06-04 11:45] VITALS: BP 155/77; PULSE 75; RESP 20; TEMP 36.8; O2SAT 97
== END 2023-06-04 11:50 | disposition home or self-care (01) ==
PROVIDERS: Emergency Provider Emergency Medicine; PCP Family Medicine
DX: M54.9 Dorsalgia, unspecified (principal); M79.604 Pain in right leg; M79.605 Pain in left leg; I73.9 Peripheral vascular disease, unspecified; F17.210 Nicotine dependence, cigarettes, uncomplicated; Z89.611 Acquired absence of right leg above knee; Z89.612 Acquired absence of left leg above knee
CPT/HCPCS: 99282; 99283

== ENCOUNTER 2023-06-19 22:31 | Observation (INO) | payer MEDICARE, MEDICAID, SELFPAY ==
[2023-06-19 23:00] VITALS: BP 148/87; PULSE 82; RESP 20; O2SAT 96
[2023-06-19 23:05] VITALS: BP 148/87; PULSE 83; RESP 23; O2SAT 97; BMI 66.9
[2023-06-19 23:09] LABS: POC Glucose,Bedside 104 (70-110)
--- NOTE | 2023-06-19 23:11 | CT_ITS ---
PROCEDURE INFORMATION: Exam: CT Head Without Contrast Exam date and time: 06/19/2023 11:40 PM Age: 62 years old Clinical indication: Altered mental status/memory loss; Additional info: AMS TECHNIQUE: Imaging protocol: Computed tomography of the head without contrast. Total images: 297 Radiation optimization: All CT scans at this facility use at least one of these dose optimization techniques: automated exposure control; mA and/or kV adjustment per patient size (includes targeted exams where dose is matched to clinical indication); or iterative reconstruction. REPORTING DATA: Count of CT and Cardiac NM exams in prior 12 months: This patient has received [address] and 0 known cardiac nuclear medicine studies in the 12 months prior to the current study. COMPARISON: [facility] CT cervical spine wo con 01/17/2019 4:16 AM FINDINGS: Brain: No acute intracranial hemorrhage, midline shift, or mass. Mild cortical and cerebellar atrophy. Bautista-white interface is maintained. Basilar cisterns are preserved. No significant white matter ischemic change. Cerebral ventricles: No ventriculomegaly. Paranasal sinuses: Minor scattered paranasal sinus mucosal thickening. Mastoid air cells: Visualized mastoid air cells are well aerated. Bones/joints: Unremarkable. No acute fracture. Soft tissues: Metallic artifact from left periorbital metallic piercing. Vasculature: Moderate calcifications bilateral intracranial internal carotid arteries. IMPRESSION: No acute intracranial process.
--- NOTE | 2023-06-19 23:11 | XR_ITS ---
PROCEDURE INFORMATION: Exam: XR Chest Exam date and time: 06/19/2023 11:59 PM Age: 62 years old Clinical indication: Other: AMS TECHNIQUE: Imaging protocol: Radiologic exam of the chest. Views: 1 view. Total images: 1 COMPARISON: CR XR CHEST PORTABLE 10/26/2021 6:39 PM FINDINGS: Tubes, catheters and devices: Status post right subclavian cardiac pacer. EKG leads are present. Lungs: Calcified left lower lobe granuloma. No acute infiltrate, airspace consolidation or vascular congestion. No interstitial edema. Pleural spaces: Biapical pleural thickening/scarring. No pleural effusion or pneumothorax. Heart/Mediastinum: Unremarkable. No cardiomegaly. No mediastinal widening or hilar enlargement. Vasculature: Mildly atherosclerotic aortic arch. Bones/joints: Partially visualized mild degenerative changes thoracic spine. IMPRESSION: No radiographically acute cardiopulmonary process.
--- NOTE | 2023-06-19 23:13 | HMH.EDGENADL ---
Discharge Plan Disposition Patient Disposition: Admitted Condition: Good Chief Complaint: Altered Mental Status Prescriptions Prescriptions: No Action Xarelto 20 mg tablet See Rx Instructions .ROUTE .COMPLEX Qty: 30 0RF Dose Instruction: TAKE 1 TABLET BY MOUTH ONCE DAILY FOR BLOOD THINNER Rx Instructions: TAKE 1 TABLET BY MOUTH ONCE DAILY FOR BLOOD THINNER clonidine HCl 0.1 mg tablet 0.1 mg PO BIDP PRN (Reason: High blood) Patient Comments: TAKE 1 TABLET BY MOUTH TWICE DAILY NEEDED FOR HIGH BLOOD PRESSURE. (TAKE NEEDED FOR BP >160-100) lidocaine [Salonpas (lidocaine)] 4 % adhesive patch,medicated 1 patch TOPICAL DAILYP PRN (Reason: Chronic pain) loperamide 2 mg capsule 2 mg PO QIDP PRN (Reason: Diarrhea) Patient Comments: TAKE 1 CAPSULE BY MOUTH 4 TIMES DAILY NEEDED FOR DIARRHEA. omeprazole 40 mg capsule,delayed release(DR/EC) 40 mg PO DAILY Patient Comments: TAKE 1 CAPSULE BY MOUTH ONCE DAILY. amitriptyline 25 mg tablet 25 mg PO HS Patient Comments: TAKE 1 TABLET BY MOUTH NIGHTLY. tamsulosin 0.4 mg capsule 0.8 mg PO HS Patient Comments: TAKE 2 CAPSULES BY MOUTH NIGHTLY. amlodipine 10 mg tablet 10 mg PO DAILY Patient Comments: TAKE ONE TABLET BY MOUTH ONCE DAILY telmisartan 80 mg tablet 80 mg PO DAILY Patient Comments: TAKE 1 TABLET BY MOUTH ONCE DAILY. aspirin 81 mg tablet,chewable 81 mg PO DAILY oxycodone 5 mg tablet 5 mg PO TIDP PRN (Reason: Chronic pain) Patient Comments: TAKE 1 TABLET BY MOUTH EVERY 8 HOURS NEEDED FOR PAIN hydroxyzine pamoate 25 mg capsule 25 mg PO TIDP PRN (Reason: Anxiety) Patient Comments: TAKE 1 CAPSULE BY MOUTH 3 TIMES DAILY NEEDED. pregabalin 200 mg capsule 200 mg PO TID Patient Comments: TAKE 1 CAPSULE BY MOUTH 3 TIMES DAILY. levocetirizine 5 mg tablet 5 mg PO DAILY Patient Comments: TAKE 1 TABLET BY MOUTH EVERY EVENING. Clinical Impressions Clinical Impression: Acidosis, lactic Alcohol intoxication Qualifiers: Complication of substance-induced condition: uncomplicated Qualified Code(s): F10.920 - Alcohol use, unspecified with intoxication, uncomplicated Decubitus skin ulcer Qualifiers: Pressure injury location: sacral region Pressure injury stage: unspecified pressure injury stage Qualified Code(s): L89.159 - Pressure ulcer of sacral region, unspecified stage Discharge ED Provider: Juliet Carmona General Adult HPI General Chief complaint: Altered Mental Status Stated complaint: intoxication Time Seen by Provider: 06/19/23 23:08 History of Present Illness HPI narrative: This 62-year-old male with a history of depression, alcoholism, substance abuse, bilateral above-knee amputation presents to the emergency department with altered mental status after being found down. Patient frequently presents with similar symptoms/concerns. Patient was found down by a neighbor. No reports of seizure-like activity, EMS did report an abrasion on the patient's scalp but no other findings of trauma. The only additional history patient provides is stating his head hurts. Patient unable to provide additional history at this time. Related Data Home Medications Medication Instructions Recorded Confirmed amitriptyline 25 mg tablet 25 mg PO HS Psych 06/04/23 06/04/23 amlodipine 10 mg tablet 10 mg PO DAILY High Blood Pressure 06/04/23 06/04/23 aspirin 81 mg chewable tablet 81 mg PO DAILY Heart health 06/04/23 06/04/23 clonidine HCl 0.1 mg tablet 0.1 mg PO BIDP PRN High blood 06/04/23 06/04/23 hydroxyzine pamoate 25 mg capsule 25 mg PO TIDP PRN Anxiety 06/04/23 06/04/23 levocetirizine 5 mg tablet 5 mg PO DAILY Allergy Symptoms 06/04/23 06/04/23 lidocaine 4 % topical patch 1 patch topical DAILYP PRN Chronic 06/04/23 06/04/23 (Salonpas (lidocaine)) pain loperamide 2 mg capsule 2 mg PO QIDP PRN Diarrhea 05/25
[2023-06-19 23:27] LABS: Microscopic, Urine URINE MICROSCOPIC (MICROSCOPIC)
[2023-06-19 23:29] LABS: Basophils # 0.1 K/mm3 (0-0.2); Basophils % 0.4 % (0.1-2.0); Eosinophils # 0.4 K/mm3 (0.0-0.4); Eosinophils % 2.4 % (0.1-12.0); Hematocrit 38.7 % (42.0-52.0); Hemoglobin 11.4 g/dL (14.1-18.0); Lymphocytes # 6.5 K/mm3 (0.7-4.5); Lymphocytes % 36.8 % (10-50); Mean Corpuscular HGB Conc 29.5 g/dL (31.8-35.4); Mean Corpuscular Hemoglobin 22.7 pg (27.0-31.2); Mean Corpuscular Volume 76.9 fl (80-94); Mean Platelet Volume 8.2 fl (7.4-10.4); Monocytes # 0.7 K/mm3 (0.1-1.0); Monocytes % 3.7 % (1.7-9.3); Neutrophils % 56.8 % (37.0-80.0); Platelet Count 418 K/mm3 (142-424); Red Blood Count 5.03 M/mm3 (4.60-6.20); Red Cell Distribution Width 21.2 % (11.5-17.5); White Blood Count 17.6 K/mm3 (4.8-10.8)
[2023-06-19 23:30] VITALS: BP 150/80; PULSE 84; RESP 18; O2SAT 97
[2023-06-19 23:30] LABS: Appearance,Urine CLEAR (Clear); Bilirubin,Urine Negative (Negative); Blood, Urine Negative (Negative); Glucose,Urine (UA) Negative (Negative); Ketones,Urine Negative (Negative); Leukocyte Esterase,Urine 1+ (Negative); Nitrate,Urine Negative (Negative); Protein,Urine Negative (Negative); Urobilinogen,Urine 0.2 EU/dl (0.2)
[2023-06-19 23:31] LABS: MANUAL DIFFERENTIAL MANUAL DIFFERENTIAL (MANUAL DIFF)
[2023-06-19 23:35] LABS: Alanine Aminotransferase 20 U/L (12-78); Albumin Level 4.4 g/dl (3.5-5.0); Alkaline Phosphatase 138 U/L (38-126); Anion Gap 18.7 mEq/L (5-15); Aspartate Amino Transferase 31 U/L (17-59); Bilirubin,Total 0.2 mg/dl (0.2-1.3); Blood Urea Nitrogen 9 mg/dl (9-20); Carbon Dioxide 19 mmol/L (22.0-30.0); Chloride 108 mmol/L (98-107); Creatine Kinase 38 U/L (55-170); Creatinine Clearance Estimated 7 mL/min (50-200); Estimated Glomerular Filt Rate 115 ml/min (>60); GFR (African American) 139 ML/MIN (>60); Globulin 4.5 g/dL (1.3-3.2); Glucose 104 mg/dl (74-100); Potassium 3.7 mmoL/L (3.5-5.1); Sodium 142 mmol/L (136-145); Total Protein,Serum 8.9 g/dl (6.3-8.2)
[2023-06-19 23:40] LABS: Benzodiazepines Screen,Urine Positive ng/ml (<200)
[2023-06-19 23:41] LABS: Amphetamine/Metha Screen,Urine Negative ng/ml (<1000)
[2023-06-19 23:42] LABS: Barbiturates Screen,Urine Negative ng/ml (<200); Methadone Screen,Urine Negative ng/ml (<300)
[2023-06-19 23:43] LABS: Cannabinoid Screen,Urine Negative ng/ml (<50)
[2023-06-19 23:44] LABS: Cocaine Screen,Urine Negative ng/ml (<300); Opiate Screen,Urine Negative ng/ml (<300)
[2023-06-19 23:45] LABS: Phencyclidine Screen,Urine Negative ng/ml (<25)
[2023-06-19 23:55] LABS: Bacteria,Urine 2+ /lpf; Color,Urine Yellow (Yellow); Squamous Epithelial Cell,Urine Occasional #/hpf (0-5)
[2023-06-19 23:56] LABS: Ethyl Alcohol 337 mg/dl (0-10); Lactic Acid 2.7 mmol/L (0.7-2.1)
[2023-06-20] VITALS (8 sets, daily range): BP systolic 118–162; BP diastolic 72–88; PULSE 72–102; RESP 16–19; TEMP 36.4–37; O2SAT 94–98; BMI 65.9; BMI 65.6; BMI 20.8; BMI 20.7
--- NOTE | 2023-06-20 00:04 | PC.NURSE ---
closed curtain at patient request. patient can now communicate verbally
[2023-06-20 01:21] LABS: Lactic Acid 3.4 mmol/L (0.7-2.1)
--- NOTE | 2023-06-20 01:35 | PC.NURSE ---
Dr. Carmona at bedside
--- NOTE | 2023-06-20 01:43 | PC.NURSE ---
CALLED HOUSE PER JENNIFER Lozano
--- NOTE | 2023-06-20 02:08 | EXP.HP ---
History of Present Illness *Admission Date: 06/20/23 *Reason for visit:: AMS. acute alcohol intoxication *History of present illness: This is a 62-year-old male with a history of depression, alcoholism, substance abuse, bilateral above-knee amputation presents to the emergency department with altered mental status after being found down. Patient frequently presents with similar symptoms/concerns. Patient was found down by a neighbor. No reports of seizure-like activity, EMS did report an abrasion on the patient's scalp but no other findings of trauma. The only additional history patient provides is stating his head hurts. Patient unable to provide additional history at this time. Admitted for treatment and management. [facility] Disclaimer: The information contained in this section may have been updated after the patient was seen, as this information can be updated by other users. Medical History (Updated 06/20/23 @ 06:04 by Juan Luis Schilling APRN) History of cardiac pacemaker Surgical History (Updated 06/20/23 @ 02:49 by Disha Kenyon RN) H/O abdominal surgery History of left hip replacement S/P bilateral above knee amputation Family History (Updated 06/04/23 @ 04:57 by Gil Dubon RN) Other No significant family history Social History Smoking Status: Current every day smoker tobacco type: cigarettes packs per day: 2 alcohol intake: current substance use type: crack/cocaine and opiates current occupational status: retired Travel in the last 8 weeks: None housing: apartment Review of Systems Review of Systems Review of systems:: unable to obtain Meds Home Medications and Allergies Home Medications Medication Instructions Recorded Confirmed Type amitriptyline 25 mg tablet 25 mg PO HS Mood 06/04/23 06/20/23 History amlodipine 10 mg tablet 10 mg PO DAILY High Blood Pressure 06/04/23 06/20/23 History aspirin 81 mg chewable tablet 81 mg PO DAILY Heart health 06/04/23 06/20/23 History clonidine HCl 0.1 mg tablet 0.1 mg PO BIDP PRN Elevated blood 06/04/23 06/20/23 History pressure (Systolic >160) hydroxyzine pamoate 25 mg capsule 25 mg PO TIDP PRN Anxiety 06/04/23 06/20/23 History levocetirizine 5 mg tablet 5 mg PO PM Allergy Symptoms 06/04/23 06/20/23 History loperamide 2 mg capsule 2 mg PO QIDP PRN Diarrhea 06/04/23 06/20/23 History omeprazole 40 mg capsule,delayed 40 mg PO DAILY Acid Reflux 06/04/23 06/20/23 History release oxycodone 5 mg tablet 5 mg PO TIDP PRN Moderate Pain 06/04/23 06/20/23 History (Scale Score 5-6) pregabalin 200 mg capsule 200 mg PO TID Chronic pain 06/04/23 06/20/23 History tamsulosin 0.4 mg capsule 0.8 mg PO HS Prostate 06/04/23 06/20/23 History telmisartan 80 mg tablet 80 mg PO DAILY High Blood Pressure 06/04/23 06/20/23 History budesonide 160 mcg-glycopyr 9 2 puff inhalation BID Breathing 06/20/23 06/20/23 History mcg-formot 4.8 mcg/actuation HFA Problems inhaler (Breztri Aerosphere) cephalexin 500 mg capsule 500 mg PO QID Infection 06/20/23 06/20/23 History lidocaine 4 % topical patch 1 patch topical DAILY Pain 06/20/23 06/20/23 History (Aspercreme (lidocaine)) rivaroxaban 20 mg tablet (Xarelto) 20 mg PO QPMWITHMEAL Blood 06/20/23 06/20/23 History Thinner/Afib New Prescriptions to Start Prescriptions: Allergies Allergy/AdvReac Type Severity Reaction Status Date / Time droperidol [From Inapsine] AdvReac Unknown Shakiness Verified 06/20/23 08:25 ziprasidone [From GEODON] AdvReac Unknown Shakiness Verified 06/20/23 08:25 Exam Data for Last 24 hours Vital signs and Labs for Last 24 Hours: Pulse Resp BP Pulse Ox O2 Del Method 88 16 162/76 H 98 Room Air 06/20/23 00:31 06/20/23 00:31 06/20/23 00:31 06/20/23 00:31 06/20/23 00:31 Laboratory Results - last 24 hr 06/19/23 23:01: POC Glucose 104 06/19/23 23:06: WBC 17.6 H, RBC 5.03, Hgb 11.4 L, Hct 38.7 L, MCV 76
[2023-06-20 02:11] LABS: Eosinophils % 4 % (0-3); Lymphocytes % 43 % (10-50); Monocytes % 2 % (2-9); Neutrophils % 51 % (42-76); Total Cells Counted 100
[2023-06-20 02:14] LABS: Platelet Estimate Normal; Target Cells 1+
--- NOTE | 2023-06-20 02:22 | PC.NURSE ---
2nd set of blood cultures collected via venipuncture to R hand. LR infusion was d/c and line flushed prior to rocephin administration.
--- NOTE | 2023-06-20 02:35 | PC.NURSE ---
pt to floor via stretcher @ [id number]
[2023-06-20 02:41] LABS: Activated Partial Thrombo Time 33.6 seconds (22.8-30.6); Prothrombin Time 11.8 seconds (10.1-12.5)
[2023-06-20 02:47] LABS: Phosphorous 3.8 mg/dl (2.5-4.5)
--- NOTE | 2023-06-20 02:48 | PC.NURSE ---
pt altered at this time and unable to provide medication list
[2023-06-20 02:53] LABS: Benzodiazepines Screen,Urine Positive ng/ml (<200)
[2023-06-20 02:54] LABS: Amphetamine/Metha Screen,Urine Negative ng/ml (<1000); Barbiturates Screen,Urine Negative ng/ml (<200)
[2023-06-20 02:55] LABS: Cannabinoid Screen,Urine Negative ng/ml (<50); Methadone Screen,Urine Negative ng/ml (<300)
[2023-06-20 02:56] LABS: Cocaine Screen,Urine Negative ng/ml (<300)
[2023-06-20 02:57] LABS: Opiate Screen,Urine Negative ng/ml (<300)
[2023-06-20 02:58] LABS: Phencyclidine Screen,Urine Negative ng/ml (<25)
[2023-06-20 05:01] LABS: Reflex Lactic Add Lactic Reflex
--- NOTE | 2023-06-20 05:57 | PC.NURSE ---
pt admitted this shift. Pt confused on admission. Pt unable to answer orientation questions. Bilat above knee amputation. Pt belongings at bedside. clothes and jewlery. 2 bandages to bottom. seizure precautions in place. fall precautions in place. Per [employer], start ciwas tomorrow.
[2023-06-20 06:33] LABS: Basophils % 0.3 % (0.1-2.0); Eosinophils # 0.3 K/mm3 (0.0-0.4); Eosinophils % 2.8 % (0.1-12.0); Hematocrit 37.7 % (42.0-52.0); Hemoglobin 10.7 g/dL (14.1-18.0); Lymphocytes % 35.2 % (10-50); Mean Corpuscular HGB Conc 28.4 g/dL (31.8-35.4); Mean Corpuscular Hemoglobin 22.7 pg (27.0-31.2); Mean Corpuscular Volume 79.9 fl (80-94); Mean Platelet Volume 7.2 fl (7.4-10.4); Monocytes # 0.5 K/mm3 (0.1-1.0); Neutrophils # 6.6 K/mm3 (1.8-7.8); Neutrophils % 57.7 % (37.0-80.0); Platelet Count 444 K/mm3 (142-424); Red Blood Count 4.72 M/mm3 (4.60-6.20); Red Cell Distribution Width 20.7 % (11.5-17.5); White Blood Count 11.4 K/mm3 (4.8-10.8)
[2023-06-20 06:44] LABS: Alanine Aminotransferase 20 U/L (12-78); Albumin Level 4.1 g/dl (3.5-5.0); Alkaline Phosphatase 121 U/L (38-126); Anion Gap 19.9 mEq/L (5-15); Aspartate Amino Transferase 30 U/L (17-59); Blood Urea Nitrogen 6 mg/dl (9-20); Calcium 8.9 mg/dl (8.4-10.2); Carbon Dioxide 21 mmol/L (22.0-30.0); Chloride 113 mmol/L (98-107); Creatinine Clearance Estimated 4 mL/min (50-200); Estimated Glomerular Filt Rate 137 ml/min (>60); GFR (African American) 166 ML/MIN (>60); Glucose 99 mg/dl (74-100); Magnesium 1.8 mg/dl (1.6-2.3); Potassium 3.9 mmoL/L (3.5-5.1); Total Protein,Serum 8.1 g/dl (6.3-8.2)
[2023-06-20 06:46] LABS: Lactic Acid Follow Up (RFLX 1) 2.7 mmol/L (0.7-2.1)
[2023-06-20 06:47] LABS: Bilirubin,Total 0.1 mg/dl (0.2-1.3)
[2023-06-20 06:49] LABS: Sodium 150 mmol/L (136-145)
--- NOTE | 2023-06-20 07:04 | PC.NURSE ---
Reported critical na of [address] coats
[2023-06-20 08:23] LABS: Reflex Lactic (2 hrs) Add Lactic Reflex
--- NOTE | 2023-06-20 08:36 | EXP.PHA.CONS ---
Pharmacy Consult Date: 06/20/23 Time: 08:36 Referring provider: DR MUHAMMAD Reason for Consult:: VANCOMYCIN DOSING CONSULT Allergies Allergy/AdvReac Type Severity Reaction Status Date / Time droperidol [From Inapsine] AdvReac Unknown Shakiness Verified 06/20/23 08:25 ziprasidone [From GEODON] AdvReac Unknown Shakiness Verified 06/20/23 08:25 Home Medications Medication Instructions Recorded Confirmed Type amitriptyline 25 mg tablet 25 mg PO HS Psych 06/04/23 06/04/23 History amlodipine 10 mg tablet 10 mg PO DAILY High Blood Pressure 06/04/23 06/04/23 History aspirin 81 mg chewable tablet 81 mg PO DAILY Heart health 06/04/23 06/04/23 History clonidine HCl 0.1 mg tablet 0.1 mg PO BIDP PRN High blood 06/04/23 06/04/23 History hydroxyzine pamoate 25 mg capsule 25 mg PO TIDP PRN Anxiety 06/04/23 06/04/23 History levocetirizine 5 mg tablet 5 mg PO DAILY Allergy Symptoms 06/04/23 06/04/23 History lidocaine 4 % topical patch 1 patch topical DAILYP PRN Chronic 06/04/23 06/04/23 History (Salonpas (lidocaine)) pain loperamide 2 mg capsule 2 mg PO QIDP PRN Diarrhea 06/04/23 06/04/23 History omeprazole 40 mg capsule,delayed 40 mg PO DAILY Acid Reflux 06/04/23 06/04/23 History release oxycodone 5 mg tablet 5 mg PO TIDP PRN Chronic pain 06/04/23 06/04/23 History pregabalin 200 mg capsule 200 mg PO TID Chronic pain 06/04/23 06/04/23 History tamsulosin 0.4 mg capsule 0.8 mg PO HS Prostate 06/04/23 06/04/23 History telmisartan 80 mg tablet 80 mg PO DAILY High Blood Pressure 06/04/23 06/04/23 History rivaroxaban 20 mg tablet (Xarelto) See Rx Instructions .Route 06/07/23 Rx .COMPLEX #30 tabs New Prescriptions to Start Prescriptions: Height: 1.04 m Weight: 70.987 kg Laboratory Results:: Laboratory Results - last 24 hr 06/19/23 23:01: POC Glucose 104 06/19/23 23:06: WBC 17.6 H, RBC 5.03, Hgb 11.4 L, Hct 38.7 L, MCV 76.9 L, MCH 22.7 L, MCHC 29.5 L, RDW 21.2 H, Plt Count 418, MPV 8.2, Neut % (Auto) 56.8, Lymph % (Auto) 36.8, Ward % (Auto) 3.7, Eos % (Auto) 2.4, Baso % (Auto) 0.4, Neut # (Auto) 10.0 H, Lymph # (Auto) 6.5 H, Ward # (Auto) 0.7, Eos # (Auto) 0.4, Baso # (Auto) 0.1, Total Counted 100, Neutrophils % (Manual) 51, Lymphocytes % (Manual) 43, Monocytes % (Manual) 2, Eosinophils % (Manual) 4 H, Platelet Estimate Normal, RBC Morphology Not Reportable, Target Cells 1+, Sodium 142, Potassium 3.7, Chloride 108 H, Carbon Dioxide 19 L, Anion Gap 18.7 H, BUN 9, Creatinine 0.70, Estimated Creat Clear 7, Estimated GFR 115, Est GFR ( Amer) 139, Glucose 104 H, Lactate 2.7 H, Calcium 9.0, Total Bilirubin 0.2, AST 31, ALT 20, Alkaline Phosphatase 138 H, Total Creatine Kinase 38 L, Total Protein 8.9 H, Albumin 4.4, Globulin 4.5 H, Albumin/Globulin Ratio 1.0 L, Urine Color Yellow, Urine Appearance Clear, Urine pH 6.0, Ur Specific Bassett 1.010, Urine Protein Negative, Urine Glucose (UA) Negative, Urine Ketones Negative, Urine Blood Negative, Urine Nitrate Negative, Urine Bilirubin Negative, Urine Urobilinogen 0.2, Ur Leukocyte Esterase 1+ A, Urine WBC 5-10, Ur Squamous Epith Cells Occasional, Urine Bacteria 2+, Urine Opiates Screen Negative, Urine Methadone Screen Negative, Ur Barbituates Screen Negative, Ur Phencyclidine Scrn Negative, Ur Amphetamines Screen Negative, U Benzodiazepines Scrn Positive H, Urine Cocaine Screen Negative, U Marijuana (THC) Screen Negative, Plasma/Serum Alcohol 337 H 06/20/23 00:00: PT 11.8, INR 1.10, APTT 33.6 H, Phosphorus 3.8, Urine Opiates Screen Negative, Urine Methadone Screen Negative, Ur Barbituates Screen Negative, Ur Phencyclidine Scrn Negative, Ur Amphetamines Screen Negative, U Benzodiazepines Scrn Positive H, Urine Cocaine Screen Negative, U Marijuana (THC) Screen Negative 06/20/23 00:56: Lactate 3.4 H 06/20/23 06:05: WBC 11.4 H D, RBC 4.72, Hgb 10.7 L, Hct 37.7 L, MCV 79.9 L, MCH 22.7 L, MCHC 28.4 L, RDW 20.7 H, Plt Count 444 H, MPV 7.2 L, Neut % (Auto) 57.7, Lymph % (Auto) 35.2, Ward % (Auto) 4.0, Eos % (Auto) 2.8, Baso
--- NOTE | 2023-06-20 09:10 | HMH.PHAINT1 ---
Pharmacy Intervention Comments: MEDICATION RECONCILIATION COMPLETED ON PATIENT USING EXTERNAL FILL HISTORY FROM PHARMACY. -JONATHAN ROMERO, DELFINAD
[2023-06-20 09:34] LABS: Lactic Acid Follow up (RFLX 2) 2.6 mmol/L (0.7-2.1)
--- NOTE | 2023-06-20 11:20 | HMH.PTWOUND ---
Rehab Inpt Wound Evaluation Rehab IP Wound Evaluation Start: 06/20/23 07:53 Freq: ONCE Status: Active Protocol: Document 06/20/23 11:14 PHORNE (Rec: 06/20/23 11:20 PHORNE [id number]) Rehab PT Wound Assessment Subjective Subjective 62 yowm adm to [facility] with Leukocytosis, lactic acidosis. He has hx of B AKA, depression, and presents with B IT chronic pressure injuries with open wounds. He is being treated by outside outpatient wound clinic and home health currently for wound care. Wound Left Buttock Wound Type Pressure Ulcer Is This a Chronic Wound Yes Wound Staging Stage II Query Text:Stage I - Unbroken, red skin, no blanching. Stage II - Skin broken, superficial skin loss involving epidermis alone or also dermis. Partial loss of skin layers. Stage III - Pressure area involves epidermis, dermis and subcutaneous tissue, full thickness skin loss. Stage IV - Pressure area involves epidermis, subcutaneous tissue, bone and other supportive tissue. Full thickness skin loss with extensive destruction of underlying tissue and structures. Wound Length (cm) 1.1 Wound Width (cm) 1.0 Wound Depth (cm) 0.1 Wound Bed Appearance Yellow Percentage of Slough (%) 50 Wound Margins Description Well Defined Surrounding Tissue Appearance Home Garden Wound Drainage Description Yellow Drainage Amount Small Primary Dressing Composite Comment optifoam gentle border lite Wound Debridement Method Gauze,Mechanical Wound Debridement Amount of Tissue Minimal Removed Dressing Change Patient Tolerance Tolerated Well Right Buttock Wound Type Pressure Ulcer Is This a Chronic Wound Yes Wound Staging Stage II Query Text:Stage I - Unbroken, red skin, no blanching. Stage II - Skin broken, superficial skin loss involving epidermis alone or also dermis. Partial loss of skin layers. Stage III - Pressure area involves epidermis, dermis and subcutaneous tissue, full thickness skin loss. Stage IV - Pressure area involves epidermis, subcutaneous tissue, bone and other supportive tissue. Full thickness skin loss with extens
--- NOTE | 2023-06-20 11:49 | PC.WOUNDNOTE ---
(R) SIDE OF BUTTOCK STAGE 2 (L) SIDE OF BUTTOCK. STAGE 2
--- NOTE | 2023-06-20 12:20 | PC.NURSE ---
PT REFUSED GABAPENTIN. MEDICATION WAISTED.
--- NOTE | 2023-06-20 13:55 | PC.NURSE ---
Pt states his son is coming to pick him up and that he is leaving AMA. Education provided. Pt signed AMA consent form. Pt's son came to room with WC. Pt is getting dressed to leave.
--- NOTE | 2023-06-20 15:03 | EXP.DC.SUM ---
General Admission date:: 06/20/23 Discharge date: 06/20/23 HPI HPI HPI: This is a 62-year-old male with a history of depression, alcoholism, substance abuse, bilateral above-knee amputation presents to the emergency department with altered mental status after being found down. Patient has experienced previous admissions for similar concerns. Patient was found down by a neighbor. No reports no seizure-like activity, EMS did report an abrasion on the patient's scalp but no other findings of trauma. The patient was somnolent and uncooperative with history. Hospital Course Hospital Course Hospital Course: The patient was admitted to the telemetry unit with routine nursing interaction and CIWA evaluations. He was maintained on scheduled benzo and gabapentin therapy. He identified improvement. I was accompanied by nursing staff to discuss the patient's desire to leave AGAINST MEDICAL ADVICE. The patient is currently not intoxicated. He is free from distracting pain and appear to have intact insight, judgment and reason during my evaluation. In my medical opinion the patient has the capacity to make decisions. The patient is also not under any duress to leave the hospital. In this scenario would be battery to subject the patient to treatment against their will. I have voiced my concerns for the patient's health given that a full evaluation and treatment have not occurred. I have discussed the need for continued evaluation and treatment secondary to his diagnoses that present a risk of or morbidity. Risks including but not limited to permanent disability, prolonged hospitalization, prolonged illness and were discussed. The patient insisted on leaving AMA. He voiced taking responsibility for his decision making. Because I have been unable to convince the patient to stay, I offered him the opportunity to ask questions about his condition and to return to the ED with any concerns. I emphasized that leaving AGAINST MEDICAL ADVICE does not preclude returning to the ED for further evaluation. I strongly encouraged the patient to return to any ED at any time particularly with worsening symptoms. His brother presented to take him home. Exam Data for Last 24 hours Vital signs and Labs for Last 24 Hours: Temp Pulse Resp BP Pulse Ox O2 Del Method 98.6 F 102 H 18 159/88 H 95 Room Air 06/20/23 11:06/20/23 11:06/20/23 11:06/20/23 11:06/20/23 11:06/20/23 13:00 Laboratory Results - last 24 hr 06/19/23 23:01: POC Glucose 104 06/19/23 23:06: WBC 17.6 H, RBC 5.03, Hgb 11.4 L, Hct 38.7 L, MCV 76.9 L, MCH 22.7 L, MCHC 29.5 L, RDW 21.2 H, Plt Count 418, MPV 8.2, Neut % (Auto) 56.8, Lymph % (Auto) 36.8, [place] % (Auto) 3.7, Eos % (Auto) 2.4, Baso % (Auto) 0.4, Neut # (Auto) 10.0 H, Lymph # (Auto) 6.5 H, [place] # (Auto) 0.7, Eos # (Auto) 0.4, Baso # (Auto) 0.1, Total Counted 100, Neutrophils % (Manual) 51, Lymphocytes % (Manual) 43, Monocytes % (Manual) 2, Eosinophils % (Manual) 4 H, Platelet Estimate Normal, RBC Morphology Not Reportable, Target Cells 1+, Sodium 142, Potassium 3.7, Chloride 108 H, Carbon Dioxide 19 L, Anion Gap 18.7 H, BUN 9, Creatinine 0.70, Estimated Creat Clear 7, Estimated GFR 115, Est GFR ( Amer) 139, Glucose 104 H, Lactate 2.7 H, Calcium 9.0, Total Bilirubin 0.2, AST 31, ALT 20, Alkaline Phosphatase 138 H, Total Creatine Kinase 38 L, Total Protein 8.9 H, Albumin 4.4, Globulin 4.5 H, Albumin/Globulin Ratio 1.0 L, Urine Color Yellow, Urine Appearance Clear, Urine pH 6.0, Ur Specific [place] 1.010, Urine Protein Negative, Urine Glucose (UA) Negative, Urine Ketones Negative, Urine Blood Negative, Urine Nitrate Negative, Urine Bilirubin Negative, Urine Urobilinogen 0.2, Ur Leukocyte Esterase 1+ A, Urine WBC 5-10, Ur Squamous Epith Cells Occasional, Urine Bacteria 2+, Urine Opiates Screen Negative, Urine Methadone Screen Negative, Ur Barbituates Screen Negative, Ur Phencyclidine Scrn Negative, Ur Amphetamines
--- NOTE | 2023-06-20 22:55 | PC.NURSE ---
Patient called stated his watch and necklace was missing. Items located in room in locked drawer. 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
== END 2023-06-20 14:06 | disposition left against medical advice (07) ==
LOC: ER 23:08 → 2ND 06-20 01:55
PROVIDERS: Nurse Practitioner Family; Admitting Provider Family Medicine; Emergency Provider Emergency Medicine; Visit Provider Family Medicine
DX: F10.920 Alcohol use, unspecified with intoxication, uncomplicated (principal); N39.0 Urinary tract infection, site not specified; E87.20 Acidosis, unspecified; F19.10 Other psychoactive substance abuse, uncomplicated; L89.159 Pressure ulcer of sacral region, unspecified stage; Z89.611 Acquired absence of right leg above knee; Z89.612 Acquired absence of left leg above knee; F17.210 Nicotine dependence, cigarettes, uncomplicated; Z79.899 Other long term (current) drug therapy; Z79.01 Long term (current) use of anticoagulants; Y90.8 Blood alcohol level of 240 mg/100 ml or more
CPT/HCPCS: 36415; 70450; 71045; 80053; 80305; 81001; 82550; 82962; 83605; 83735; 84100; 85007; 85025; 85610; 85730; 87040; 87086; 87088; 87186; 99285; G0378; J0696; J3370

== ENCOUNTER 2024-12-01 13:55 | Outpatient (POV) | payer MEDICARE, MEDICAID, SELFPAY ==
--- NOTE | 2024-12-01 14:20 | EXP.PAIN.OV ---
HPI Data of Consult Patient: new to practice Consult date: 12/01/24 Requesting Physician: Nora Metz APRN Primary Care Provider: Referral Provider, MD Consult Narrative Reason for consult: Low back pain, bilateral hip pain, arm pain History of present illness: Mr. Latham is a 63 year old male who presents today as a new patient. He is a referral from [facility] care. Today he rates his pain a 10 out of 10. 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 Patient states this is gone on for years and that he was seeing pain management there in [place] [facility]. He states that that was about 2 years ago and that he did get injections in the past but they never seem to help and was stating that he had a reaction to the steroids and cannot tolerate them. He states that he was getting methadone from that pain clinic. Patient does state that he has pressure sores in multiple areas. Patient does state that he has degenerative disc throughout, history of carpal tunnel. Does also state that he has had a pacemaker in the past. Patient states that he is interested in anything to help provide overall improvements.He is currently managed with tramadol 50 mg from an outside provider but does also have gabapentin 600 mg, Percocet 5 mg and clonazepam on his Venkat. It has been reviewed. CC: Nora Metz APRN [facility] Disclaimer: The information contained in this section may have been updated after the patient was seen, as this information can be updated by other users. Medical History (Updated 12/01/24 @ 14:26 by Nora Metz APRN) History of cardiac pacemaker Surgical History (Updated 06/20/23 @ 02:49 by Disha Kenyon RN) H/O abdominal surgery History of left hip replacement S/P bilateral above knee amputation Family History (Updated 06/04/23 @ 04:57 by Gil Dubon, RN) Other No significant family history Social History Smoking Status: Current every day smoker tobacco type: cigarettes packs per day: 2 alcohol intake: current alcohol intake frequency: 3 or more drinks per day substance use type: crack/cocaine and opiates current occupational status: retired Travel in the last 8 weeks: None housing: apartment Review of Systems Review of Systems Review of systems:: pertinent systems reviewed and negative unless documented below Review of systems (narrative): Review of Systems: General: No recent weight changes, no fever, no sleep disturbances Respiratory: No cough, no shortness of air, no recurring pulmonary infections Cardiovascular/peripheral vascular: No chest pain, no palpitations, no edema, no shortness of breath Gastrointestinal: No new onset incontinence, normal bowel movements reported Genitourinary: No new onset incontinence Musculoskeletal: Low back pain, bilateral hip pain, chronic pain Psychiatric: [Normal mood/affect] Neurological: [Denies weakness in extremities], [denies balance issues] Meds Home Medications and Allergies Home Medications ?Medication ?Instructions ?Recorded ?Confirmed ?Type amitriptyline 25 mg tablet 25 mg PO HS Mood 06/04/23 06/20/23 History amlodipine 10 mg tablet 10 mg PO DAILY High Blood Pressure 06/04/23 06/20/23 History aspirin 81 mg chewable tablet 81 mg PO DAILY Heart health 06/04/23 06/20/23 History clonidine HCl 0.1 mg tablet 0.1 mg PO BIDP PRN Elevated blood 06/04/23 06/20/23 History pressure (Systolic >160) hydroxyzine pamoate 25 mg capsule 25 mg PO TIDP PRN Anxiety 06/04/23 06/20/23 History levocetirizine 5 mg tablet 5 mg PO PM Allergy Symptoms 06/04/23 06/20/23 History loperamide 2 mg capsule 2 mg PO QIDP PRN Diarrhea 06/04/23 06/20/23 History omeprazole 40 mg capsule,delayed 40 mg PO DAILY Acid Reflux 06/04/23 06/20/23 History release oxycodone 5 mg tablet 5 mg PO TIDP PRN Moderate Pain 06/04/23 06/20/23 History (Scale Score 5-6) pregabalin 200 mg capsule 200 mg PO TID Chronic pain 06/04/23 06/20/23 History tamsulosin 0.4 mg capsule 0.8 mg PO HS Prostate 06/04/23 06/20/23 History telmisartan 80 mg tablet 80 mg PO DAILY High Blood Pressure 06/04/23 06/20/23 History budesonide 160 mcg-glycopyr 9 2 puff inhalation BID Breathing 06/20/23 06/20/23 History mcg-formot 4.8 mcg/actuation HFA Problems inhaler (Breztri Aerosphere) cephalexin 500 mg capsule 500 mg PO QID Infection 06/20/23 06/20/23 History lidocaine 4 % topical patch 1 patch topical DAILY Pain 06/20/23 06/20/23 History (Aspercreme (lidocaine)) rivaroxaban 20 mg tablet (Xarelto) 20 mg PO QPMWITHMEAL Blood 06/20/23 06/20/23 History Thinner/Afib New Prescriptions to Start Prescriptions: Allergies Allergy/AdvReac Type Severity Reaction Status Date / Time droperidol (From Inapsine) AdvReac Unknown Shakiness Verified 06/20/23 08:25 ziprasidone (From GEODON) AdvReac Unknown Shakiness Verified 06/20/23 08:25 Objective Narrative: Physical Exam: General: Alert and oriented x3, no acute distress, pleasant and cooperative Lungs: Respirations even and unlabored, symmetrical chest expansion Eyes: PERRL Musculoskeletal: Flexion and extension of lumbar spine limited Neurological: Speech clear, no gross sensory deficit Assessment and Plan *Assessment and plan (1) Pain, lower extremity: Status: Acute Qualifiers: Laterality: right Qualified Code(s): M79.604 - Pain in right leg Category: Medical Code(s): M79.606 - Pain in leg, unspecified (2) Chronic pain: Status: Acute Category: Medical Code(s): G89.29 - Other chronic pain (3) Bilateral hip pain: Status: Acute Category: Medical Code(s): M25.551 - Pain in right hip; M25.552 - Pain in left hip Plan I did discuss at length with the patient that we are an interventional pain clinic and we do more injection therapy and do not prescribe scheduled medications to new patients unless there is a possibility of cancer or other specific stipulations. Patient acknowledges understanding. We did get notes over from his primary care that did make mention of chronic alcoholism, polysubstance abuse including cocaine abuse in the past. I did discuss with the patient due to his heart related issues as well that it is not recommended for anti-inflammatory medication. I will order the patient a compounded cream. Patient was counseled that he can follow-up in our office in 1 month. Patient agreed with this plan of care. Patient has been instructed to contact the clinic with any concerns before the next appointment. Dr. Barrow has reviewed this note and agrees with this plan of care. This note was dictated using voice recognition software and make contain errors or omissions. All injections are used with Lidocaine, Bupivacaine and Depo Medrol. Occasionally urine drug screen is needed to verify patient's compliance with our office pain contract. This is ordered based off specific treatments related to chronic pain with the potential to abuse certain medications.
[2024-12-01 15:14] VITALS: BP 160/71; PULSE 83; RESP 18; O2SAT 97; BMI 45.8
== END 2024-12-01 23:59 | disposition home or self-care (01) ==
LOC: SC.PAIN 13:58
PROVIDERS: Visit Provider Nurse Practitioner Family
DX: M79.604 Pain in right leg (principal); G89.29 Other chronic pain; M25.551 Pain in right hip; M25.552 Pain in left hip; Z89.612 Acquired absence of left leg above knee; Z89.611 Acquired absence of right leg above knee; Z96.642 Presence of left artificial hip joint; F17.210 Nicotine dependence, cigarettes, uncomplicated; Z79.01 Long term (current) use of anticoagulants
CPT/HCPCS: 99202; G0463